=== PATIENT | male | born 1970 | race African-American/Black ===

== ENCOUNTER 2020-03-05 08:03 | Emergency (ER) | payer SELFPAY ==
[2020-03-05] MEDS ORDERED: Ketorolac Tromethamine 60 MG/2 ML VIAL ONE (08:19)
== END 2020-03-05 08:35 | disposition home or self-care (01) ==
LOC: BURERS 08:03
DX: S83.207A Unspecified tear of unspecified meniscus, current injury, left knee, initial encounter (principal); R26.89 Other abnormalities of gait and mobility; M25.462 Effusion, left knee; W22.8XXA Striking against or struck by other objects, initial encounter
CPT/HCPCS: 96372; 99283; J1885

== ENCOUNTER 2023-01-22 09:53 | Emergency (ER) | payer SELFPAY ==
[2023-01-22 10:53] LABS: Band 8 % (5-11); Hemoglobin 14.3 g/dL (14.0-18.0); Lymphocytes 26 % (21-51); MDiff Complete? YES; Mean Corpuscular HGB CONC 31.9 g/dL (32.0-36.0); Mean Corpuscular Volume 94.1 fl (78.0-98.0); Mean Platelet Volume 6.7 fL (7.4-10.4); Monocytes 8 % (0-10); Neutrophil 58 % (42-75); Platelet Count 225 10x3/uL (130-400); RBC Distribution Width 12.1 % (11.5-14.5); Red Blood Cell (RBC) Count 4.78 mill/uL (4.70-6.10); White Blood Cell (WBC) Count 8.6 10x3/uL (4.8-10.8)
[2023-01-22 10:54] LABS: Vacuoles SLIGHT
[2023-01-22 10:57] LABS: ALT (SGPT) 121 U/L (8-55); AST (SGOT) 114 U/L (5-34); Albumin 3.7 g/dL (3.5-5.0); Alkaline Phosphatase 78 U/L (40-110); Anion Gap 16 mmol/L (10-20); BUN (Urea Nitrogen) 10 mg/dL (8.4-25.7); Bilirubin, Total 0.8 mg/dL (0.2-1.2); Calc. Creatinine Clearance 0 mL/min (70-130); Calcium 8.4 mg/dL (7.8-10.44); Carbon Dioxide 27 mmol/L (22-29); Chloride 91 mmol/L (98-107); Estimated GFR 67; Globulin 3.6 g/dL (2.4-3.5); Glucose 137 mg/dL (70-105); Lipase 19 U/L (8-78); Potassium 3.2 mmol/L (3.5-5.1); Protein, Total 7.3 g/dL (6.0-8.3); Sodium 131 mmol/L (136-145)
== END 2023-01-22 12:10 | disposition home or self-care (01) ==
LOC: BURERS 09:53
DX: E86.0 Dehydration (principal)
CPT/HCPCS: 80053; 83605; 83690; 85025; 96360